=== PATIENT | male | born 1980 | race Caucasian/White ===

== ENCOUNTER → 2017-05-28 | Outpatient (CLI) | payer BC | LOC: SLEEP-COR 15:41 | DX: G47.33 Obstructive sleep apnea (adult) (pediatric) (principal) | CPT/HCPCS: 95810 ==

== ENCOUNTER → 2020-09-19 | Outpatient (CLI) | payer OTHER ==
[~2020-09-19] MED LIST: BENTYL 20MG TAB20 MG PO; ZOFRAN ODT 4 MG4 MG PO
[2020-09-19 10:06] LABS: HEMOGLOBIN 16.3 gm/dl (14.0-17.5); RED BLOOD COUNT 5.43 M/UL (4.20-5.50); WHITE BLOOD COUNT 7.3 K/UL (4.5-11.0)
[2020-09-19 10:16] LABS: BUN/CREATININE RATIO 15 (0-10)
[2020-09-20 09:14] LABS: HBSAG SCREEN Negative (Negative); HEP B CORE AB, IGM Negative (Negative); HEP B CORE AB, TOT Negative (Negative)
[2020-09-20 16:12] LABS: RUBELLA ANTIBODIES, IGG 5.77 index (Immune >0.99)
== END ==
LOC: LAB 08:59
PROVIDERS: Physician Assistant
DX: E78.2 Mixed hyperlipidemia (principal)
CPT/HCPCS: 36415; 80053; 80061; 84153; 84443; 85025; 86704; 86705; 86706; 86762; 86787; 87340

== ENCOUNTER → 2021-02-18 | Outpatient (CLI) | payer OTHER ==
[2021-02-18 09:38] LABS: HEMOGLOBIN 15.8 gm/dl (14.0-17.5); RED BLOOD COUNT 5.31 M/UL (4.20-5.50); WHITE BLOOD COUNT 6.4 K/UL (4.5-11.0)
[2021-02-18 10:07] LABS: BUN/CREATININE RATIO 12 (0-10)
[2021-02-19 12:14] LABS: IMMUNOGLOBULIN A, QN, SERUM 219 mg/dL (90-386)
[2021-02-19 17:12] LABS: T-TRANSGLUTAMINASE (TTG) IGA <2 U/mL (0-3)
== END ==
LOC: LAB 08:30
PROVIDERS: Physician Assistant
DX: R10.84 Generalized abdominal pain (principal)
CPT/HCPCS: 36415; 80053; 80061; 82150; 82784; 83516; 83690; 85025

== ENCOUNTER → 2021-09-18 | Outpatient (CLI) | payer BC ==
[2021-09-19 08:13] LABS: A/G RATIO 1.6 (1.2-2.2); BILIRUBIN, TOTAL 0.2 mg/dL (0.0-1.2); CALCIUM, SERUM 9.2 mg/dL (8.7-10.2); CREATININE, SERUM 1.07 mg/dL (0.76-1.27); GLOBULIN, TOTAL 2.7 g/dL (1.5-4.5); POTASSIUM, SERUM 4.8 mmol/L (3.5-5.2)
== END ==
LOC: LAB 05:44
PROVIDERS: Family Medicine
DX: R97.20 Elevated prostate specific antigen [PSA] (principal); M10.9 Gout, unspecified
CPT/HCPCS: 36415; 80053; 84153; 84550

== ENCOUNTER → 2021-09-26 | Outpatient (CLI) | payer BC | LOC: EROP 09:47 | DX: U07.1 COVID-19 (principal) | CPT/HCPCS: U0002 ==

== ENCOUNTER 2022-01-15 18:47 | Emergency (ER) | payer BC | END 2022-01-15 20:47 | disposition left against medical advice (07) | LOC: ER1 18:47 | DX: Z53.21 Procedure and treatment not carried out due to patient leaving prior to being seen by health care provider (principal) | CPT/HCPCS: 93005 ==

== ENCOUNTER → 2022-03-13 | Outpatient (CLI) | payer BC | LOC: CT 08:32 | DX: R10.812 Left upper quadrant abdominal tenderness (principal) | CPT/HCPCS: 36415; 82565; 84520; Q9967 ==